=== PATIENT | female | born 2000 | race Caucasian/White ===

== ENCOUNTER → 2018-05-08 | Outpatient (CLI) | payer BC ==
--- NOTE | 2018-05-09 20:11 | RT HOLTER TEST ---
FACILITY: [facility] PATIENT NAME: GEMINI MILLS : [id number] MR: [id number]: [id number] EXAM DATE: ORDERING PHYSICIAN: ELIZABETH ADAIR TECHNOLOGIST: KRYSTINA Hook-up date: 2018-05-08 14:02:00 Duration: 24:20:00 Test Indications: PALPITATIONS Medications: [id number] QRS complexes 2 Ventricular ectopics which represent <1 % of total QRS comp. 2 Supraventricular ectopics which represent <1 % of total QRS comp. * Paced QRS complexes which represent % of total QRS comp. VENTRICULAR ECTOPY 2 Isolated 0 Bigeminal Cycles 0 Couplets 0 Runs 0 Beats in Runs * Beats LONGEST at * BPM at :: -- * Beats FASTEST at * BPM at :: -- SUPRAVENTRICULAR ECTOPY 2 Isolated 0 Couplets 0 Runs 0 Beats in Runs * Beats LONGEST at * BPM at :: -- * Beats FASTEST at * BPM at :: -- HEART RATES 50 MIN at 04:19:15 2018-05-09 79 AVG 173 MAX at 17:50:04 2018-05-08 LONGEST RR 1.416 secs at 05:57:33 2018-05-09 S-T LEVELS Channel 1 -12.800 mm MIN at 14:02:00 2018-05-08 -12.800 mm MAX at 14:02:00 2018-05-08 Channel 2 -12.800 mm MIN at 14:02:00 2018-05-08 -12.800 mm MAX at 14:02:00 2018-05-08 Channel 3 -12.800 mm MIN at 14:02:00 2018-05-08 -12.800 mm MAX at 14:02:00 2018-05-08 Sinus rhythym throughout examination. Period of sinus tachycardia with max HR 153 lasting 7 minutes 05.09.2018 @ . 2 isolated PVC and 2 isolated SVE noted. Confirmed by Emigdio Dewtit ([id number]) on 05/09/2018 8:10:51 PM Referred By: Overread By: Emigdio Mayberry
== END ==
LOC: RESP 13:47
PROVIDERS: ATTEND Pediatrics Adolescent Medicine
DX: R00.2 Palpitations (principal)
CPT/HCPCS: 93225; 93226